=== PATIENT | male | born 1935 | race Caucasian/White ===

== ENCOUNTER 2016-09-19 08:40 | Outpatient (CLI) | payer MEDICARE, BC ==
[~2016-09-19 08:40] MED LIST: ASCO500T9 PO; ATOR40TA PO; CLOP75TA2 PO; FLUT1DIS3 IH; FURO40TA5 PO; LEVO100T9 PO; LISI40TA4 PO; METO50TA3 PO; RIVA10TA PO; SULF1TAB48 PO; Silver Sulfadiazine TP
== END 2016-09-19 23:59 | disposition home or self-care (01) ==
LOC: WOU 08:40
PROVIDERS: ATTEND Podiatrist Foot & Ankle Surgery
DX: B35.1 Tinea unguium (principal); L60.3 Nail dystrophy; L85.3 Xerosis cutis; I48.2 Chronic atrial fibrillation; Z79.01 Long term (current) use of anticoagulants; I89.0 Lymphedema, not elsewhere classified; Z79.02 Long term (current) use of antithrombotics/antiplatelets; J44.9 Chronic obstructive pulmonary disease, unspecified; J45.909 Unspecified asthma, uncomplicated; I25.10 Atherosclerotic heart disease of native coronary artery without angina pectoris; I87.2 Venous insufficiency (chronic) (peripheral); E03.9 Hypothyroidism, unspecified; I25.2 Old myocardial infarction; I10 Essential (primary) hypertension
CPT/HCPCS: G0463

== ENCOUNTER 2017-05-20 08:56 | Outpatient (CLI) | payer MEDICARE, BC | END 2017-05-20 23:59 | disposition home or self-care (01) | DX: B35.1 Tinea unguium (principal); L60.3 Nail dystrophy; R60.0 Localized edema; I89.0 Lymphedema, not elsewhere classified; I48.2 Chronic atrial fibrillation; Z79.01 Long term (current) use of anticoagulants | CPT/HCPCS: A6402; G0463 ==

== ENCOUNTER 2017-05-27 13:08 | Outpatient (CLI) | payer MEDICARE, BC | END 2017-05-27 23:59 | disposition home or self-care (01) | LOC: WOU 13:08 | PROVIDERS: ATTEND Specialist | DX: I89.0 Lymphedema, not elsewhere classified (principal); L89.321 Pressure ulcer of left buttock, stage 1; L30.8 Other specified dermatitis; I25.10 Atherosclerotic heart disease of native coronary artery without angina pectoris; I11.9 Hypertensive heart disease without heart failure; Z95.5 Presence of coronary angioplasty implant and graft; Z87.891 Personal history of nicotine dependence; F31.9 Bipolar disorder, unspecified; Z79.899 Other long term (current) drug therapy; I25.2 Old myocardial infarction; Z79.01 Long term (current) use of anticoagulants | CPT/HCPCS: A6452; G0463 ==

== ENCOUNTER 2017-06-03 09:23 | Outpatient (CLI) | payer MEDICARE, BC | END 2017-06-03 23:59 | disposition home health service (06) | LOC: WOU 09:23 | PROVIDERS: ATTEND Specialist | DX: L89.321 Pressure ulcer of left buttock, stage 1 (principal); I89.0 Lymphedema, not elsewhere classified; Z87.891 Personal history of nicotine dependence; F31.9 Bipolar disorder, unspecified; Z79.899 Other long term (current) drug therapy; Z79.01 Long term (current) use of anticoagulants; I25.2 Old myocardial infarction; I11.9 Hypertensive heart disease without heart failure; I25.10 Atherosclerotic heart disease of native coronary artery without angina pectoris; Z95.5 Presence of coronary angioplasty implant and graft | CPT/HCPCS: G0463 ==

== ENCOUNTER 2017-07-22 09:15 | Outpatient (CLI) | payer MEDICARE, BC | END 2017-07-22 23:59 | disposition home health service (06) | LOC: WOU 09:15 | PROVIDERS: ATTEND Specialist | DX: L30.8 Other specified dermatitis (principal); I89.0 Lymphedema, not elsewhere classified; L89.321 Pressure ulcer of left buttock, stage 1; Z74.09 Other reduced mobility | CPT/HCPCS: A6402; G0463 ==

== ENCOUNTER 2017-08-05 09:15 | Outpatient (CLI) | payer MEDICARE, BC | END 2017-08-05 23:59 | disposition home health service (06) | LOC: WOU 09:15 | PROVIDERS: ATTEND Podiatrist Foot & Ankle Surgery | DX: B35.3 Tinea pedis (principal); R60.0 Localized edema; B35.1 Tinea unguium; L90.9 Atrophic disorder of skin, unspecified; L84 Corns and callosities; L60.2 Onychogryphosis; Z79.01 Long term (current) use of anticoagulants | CPT/HCPCS: G0463 ==

== ENCOUNTER 2017-10-06 09:15 | Outpatient (CLI) | payer MEDICARE, BC ==
[~2017-10-06 09:15] MED LIST changes: +CLOP75TA15 PO; -CLOP75TA2 PO; +METO50TA16 PO; -METO50TA3 PO
== END 2017-10-06 23:59 | disposition home or self-care (01) ==
LOC: WOU 09:15
PROVIDERS: ATTEND Podiatrist Foot & Ankle Surgery
DX: E11.42 Type 2 diabetes mellitus with diabetic polyneuropathy (principal); B35.1 Tinea unguium; L60.0 Ingrowing nail; I87.2 Venous insufficiency (chronic) (peripheral); F17.211 Nicotine dependence, cigarettes, in remission; I89.0 Lymphedema, not elsewhere classified; L30.8 Other specified dermatitis
CPT/HCPCS: G0463

== ENCOUNTER 2017-12-30 09:47 | Outpatient (CLI) | payer MEDICARE, BC | END 2017-12-30 23:59 | disposition home health service (06) | LOC: WOU 09:47 | PROVIDERS: ATTEND Podiatrist Foot & Ankle Surgery | DX: S90.122A Contusion of left lesser toe(s) without damage to nail, initial encounter (principal); L97.528 Non-pressure chronic ulcer of other part of left foot with other specified severity; Y92.89 Other specified places as the place of occurrence of the external cause; W26.8XXA Contact with other sharp object(s), not elsewhere classified, initial encounter; L89.899 Pressure ulcer of other site, unspecified stage; I87.2 Venous insufficiency (chronic) (peripheral); B35.1 Tinea unguium; R60.9 Edema, unspecified | CPT/HCPCS: 11042; A6402 ==

== ENCOUNTER 2018-01-06 10:28 | Outpatient (CLI) | payer MEDICARE, BC | END 2018-01-06 23:59 | disposition home health service (06) | LOC: WOU 10:28 | PROVIDERS: ATTEND Podiatrist Foot & Ankle Surgery | DX: S90.122D Contusion of left lesser toe(s) without damage to nail, subsequent encounter (principal); S90.31XD Contusion of right foot, subsequent encounter; X58.XXXD Exposure to other specified factors, subsequent encounter; L84 Corns and callosities; B35.3 Tinea pedis; B35.1 Tinea unguium; R60.0 Localized edema | CPT/HCPCS: A6402; G0463 ==

== ENCOUNTER 2018-02-17 13:43 | Outpatient (CLI) | payer MEDICARE, BC | END 2018-02-17 23:59 | disposition home health service (06) | LOC: WOU 13:43 | PROVIDERS: ATTEND Podiatrist Foot & Ankle Surgery | DX: B35.3 Tinea pedis (principal); B35.1 Tinea unguium; R60.0 Localized edema; L60.0 Ingrowing nail; I89.0 Lymphedema, not elsewhere classified | CPT/HCPCS: G0463 ==

== ENCOUNTER 2018-04-07 10:48 | Outpatient (CLI) | payer MEDICARE, BC | END 2018-04-07 23:59 | disposition home health service (06) | LOC: WOU 10:48 | PROVIDERS: ATTEND Specialist | DX: L72.3 Sebaceous cyst (principal); I48.2 Chronic atrial fibrillation; S31.819D Unspecified open wound of right buttock, subsequent encounter; X58.XXXD Exposure to other specified factors, subsequent encounter; Z87.891 Personal history of nicotine dependence; J44.9 Chronic obstructive pulmonary disease, unspecified; I25.10 Atherosclerotic heart disease of native coronary artery without angina pectoris; Z95.5 Presence of coronary angioplasty implant and graft; I10 Essential (primary) hypertension; E78.5 Hyperlipidemia, unspecified; I25.2 Old myocardial infarction; F31.9 Bipolar disorder, unspecified; Z79.899 Other long term (current) drug therapy | CPT/HCPCS: A6209; A6402; G0463; Z7610 ==

== ENCOUNTER 2018-04-14 10:45 | Outpatient (CLI) | payer MEDICARE, BC | END 2018-04-14 23:59 | disposition home health service (06) | LOC: WOU 10:45 | PROVIDERS: ATTEND Specialist | DX: L72.3 Sebaceous cyst (principal); L89.322 Pressure ulcer of left buttock, stage 2; I48.2 Chronic atrial fibrillation; Z87.891 Personal history of nicotine dependence; I25.2 Old myocardial infarction; Z86.74 Personal history of sudden cardiac arrest; I25.10 Atherosclerotic heart disease of native coronary artery without angina pectoris; Z95.5 Presence of coronary angioplasty implant and graft; Z79.899 Other long term (current) drug therapy; B36.9 Superficial mycosis, unspecified | CPT/HCPCS: A6402; G0463; Z7610 ==

== ENCOUNTER 2018-04-21 10:40 | Outpatient (CLI) | payer MEDICARE, BC | END 2018-04-21 23:59 | disposition home health service (06) | LOC: WOU 10:40 | PROVIDERS: ATTEND Specialist | DX: L72.3 Sebaceous cyst (principal); L89.151 Pressure ulcer of sacral region, stage 1; L89.322 Pressure ulcer of left buttock, stage 2; I48.2 Chronic atrial fibrillation; Z87.891 Personal history of nicotine dependence; E03.9 Hypothyroidism, unspecified; I25.10 Atherosclerotic heart disease of native coronary artery without angina pectoris; I10 Essential (primary) hypertension; Z95.5 Presence of coronary angioplasty implant and graft; Z86.74 Personal history of sudden cardiac arrest; Z79.899 Other long term (current) drug therapy | CPT/HCPCS: A6402; G0463; Z7610 ==

== ENCOUNTER 2018-04-28 10:45 | Outpatient (CLI) | payer MEDICARE, BC | END 2018-04-28 23:59 | disposition home health service (06) | LOC: WOU 10:45 | PROVIDERS: ATTEND Specialist | DX: L72.3 Sebaceous cyst (principal); L89.322 Pressure ulcer of left buttock, stage 2; I48.2 Chronic atrial fibrillation; Z87.891 Personal history of nicotine dependence; I25.2 Old myocardial infarction; E05.90 Thyrotoxicosis, unspecified without thyrotoxic crisis or storm; I10 Essential (primary) hypertension; E78.5 Hyperlipidemia, unspecified; F31.9 Bipolar disorder, unspecified; J44.9 Chronic obstructive pulmonary disease, unspecified | CPT/HCPCS: A6402; G0463; Z7610 ==

== ENCOUNTER 2018-05-05 10:45 | Outpatient (CLI) | payer MEDICARE, BC | END 2018-05-05 23:59 | disposition home health service (06) | LOC: WOU 10:45 | PROVIDERS: ATTEND Specialist | DX: I48.2 Chronic atrial fibrillation (principal); Z87.891 Personal history of nicotine dependence; Z86.74 Personal history of sudden cardiac arrest; I25.2 Old myocardial infarction; I10 Essential (primary) hypertension; E78.5 Hyperlipidemia, unspecified; F31.9 Bipolar disorder, unspecified; Z79.899 Other long term (current) drug therapy; S31.819A Unspecified open wound of right buttock, initial encounter; X58.XXXA Exposure to other specified factors, initial encounter; Y92.89 Other specified places as the place of occurrence of the external cause | CPT/HCPCS: 11042; A6402; Z7610 ==

== ENCOUNTER 2018-05-12 10:38 | Outpatient (CLI) | payer MEDICARE, BC | END 2018-05-12 23:59 | disposition home health service (06) | LOC: WOU 10:38 | PROVIDERS: ATTEND Specialist | DX: S31.819A Unspecified open wound of right buttock, initial encounter (principal); X58.XXXA Exposure to other specified factors, initial encounter; Y92.89 Other specified places as the place of occurrence of the external cause; L72.3 Sebaceous cyst; I48.2 Chronic atrial fibrillation; Z87.891 Personal history of nicotine dependence; I89.0 Lymphedema, not elsewhere classified; I25.2 Old myocardial infarction; F31.9 Bipolar disorder, unspecified; Z79.899 Other long term (current) drug therapy | CPT/HCPCS: 11042; A6402; Z7610 ==

== ENCOUNTER 2018-05-19 10:39 | Outpatient (CLI) | payer MEDICARE, BC | END 2018-05-19 23:59 | disposition home health service (06) | LOC: WOU 10:39 | PROVIDERS: ATTEND Specialist | DX: Z09 Encounter for follow-up examination after completed treatment for conditions other than malignant neoplasm (principal); L89.312 Pressure ulcer of right buttock, stage 2; I48.2 Chronic atrial fibrillation; Z87.891 Personal history of nicotine dependence; F31.9 Bipolar disorder, unspecified; Z79.899 Other long term (current) drug therapy; I25.2 Old myocardial infarction; Z86.74 Personal history of sudden cardiac arrest; Z95.820 Peripheral vascular angioplasty status with implants and grafts; I25.10 Atherosclerotic heart disease of native coronary artery without angina pectoris; E05.90 Thyrotoxicosis, unspecified without thyrotoxic crisis or storm; I10 Essential (primary) hypertension; J44.9 Chronic obstructive pulmonary disease, unspecified | CPT/HCPCS: A6402; G0463 ==

== ENCOUNTER 2018-05-26 10:30 | Outpatient (CLI) | payer MEDICARE, BC | END 2018-05-26 23:59 | disposition home health service (06) | LOC: WOU 10:30 | PROVIDERS: ATTEND Specialist | DX: Z09 Encounter for follow-up examination after completed treatment for conditions other than malignant neoplasm (principal); Z87.891 Personal history of nicotine dependence; I48.2 Chronic atrial fibrillation; F31.9 Bipolar disorder, unspecified; Z79.899 Other long term (current) drug therapy; Z86.74 Personal history of sudden cardiac arrest; I89.0 Lymphedema, not elsewhere classified | CPT/HCPCS: A6402; G0463; Z7610 ==

== ENCOUNTER 2018-08-18 11:12 | Outpatient (CLI) | payer MEDICARE, BC | END 2018-08-18 23:59 | disposition home health service (06) | LOC: WOU 11:12 | PROVIDERS: ATTEND Specialist | DX: L89.312 Pressure ulcer of right buttock, stage 2 (principal); M17.0 Bilateral primary osteoarthritis of knee; I48.2 Chronic atrial fibrillation; Z87.891 Personal history of nicotine dependence; I25.10 Atherosclerotic heart disease of native coronary artery without angina pectoris; Z95.5 Presence of coronary angioplasty implant and graft; I25.2 Old myocardial infarction; J44.9 Chronic obstructive pulmonary disease, unspecified | CPT/HCPCS: G0463; Z7610 ==

== ENCOUNTER 2018-09-29 13:47 | Outpatient (CLI) | payer MEDICARE, BC | END 2018-09-29 23:59 | disposition home health service (06) | LOC: WOU 13:47 | PROVIDERS: ATTEND Podiatrist Foot & Ankle Surgery | DX: L84 Corns and callosities (principal); M20.40 Other hammer toe(s) (acquired), unspecified foot; B35.3 Tinea pedis; R60.0 Localized edema; B35.1 Tinea unguium | CPT/HCPCS: A6402; G0463 ==

== ENCOUNTER 2019-05-31 09:20 | Outpatient (CLI) | payer MEDICARE, BC | END 2019-05-31 23:59 | disposition home or self-care (01) | LOC: WOU 09:20 | PROVIDERS: ATTEND Podiatrist Foot & Ankle Surgery | DX: I87.311 Chronic venous hypertension (idiopathic) with ulcer of right lower extremity (principal); L97.818 Non-pressure chronic ulcer of other part of right lower leg with other specified severity; I87.2 Venous insufficiency (chronic) (peripheral); B35.1 Tinea unguium; M79.671 Pain in right foot; M79.672 Pain in left foot; Z79.01 Long term (current) use of anticoagulants | CPT/HCPCS: 11042; A6209 ==